=== PATIENT | male | born 1950 | race Caucasian/White ===

== ENCOUNTER 2021-11-03 15:02 | Emergency (ER) | payer OTHER ==
--- NOTE | 2021-11-03 15:44 | ED ---
General Adult HPI - General Chief complaint: Abdominal Pain Stated complaint: Not able to sleep Time Seen by Provider: 11/03/21 15:25 Source: patient, family, RN notes reviewed Mode of arrival: ambulatory Limitations: no limitations - History of Present Illness Initial comments: Patient is a 71-year-old male presents to the emergency room with complaints of increased urinary frequency at nighttime. He states that he is getting up 5-6 times a night to urinate causing him to become very drowsy during the day. He denies any increase in daytime urination. He denies any dysuria, hematuria or flank pain. He denies any abdominal pain, nausea, vomiting., fevers or chills. He notes the low-grade temperature upon triage in the ER today without any chills. He states that he is not following healthcare providers regularly at this time. He is staying at the local [facility] as they are traveling. He denies any follow-up with urology from his local region as well. He denies any significant past medical history and states he is not taking any medications on a regular basis. - Related Data Previous Rx's Medication Instructions Recorded Ciprofloxacin HCl [Cipro] 500 mg PO Q12HR 10 Days #20 tab 11/03/21 Allergies Allergy/AdvReac Type Severity Reaction Status Date / Time No Known Allergies Allergy Verified 11/03/21 15:23 Review of Systems ROS Statement: Those systems with pertinent positive or pertinent negative responses have been documented in the HPI. ROS Other: All systems not noted in ROS Statement are negative. Past Medical History Past Medical History: No Reported History Past Surgical History: Joint Replacement Past Psychological History: No Psychological Hx Reported Smoking Status: Never smoker Past Alcohol Use History: None Reported Past Drug Use History: None Reported General Exam Limitations: language barrier (primary language Omani) General appearance: alert, in no apparent distress Head exam: Present: atraumatic, normocephalic, normal inspection Eye exam: Present: normal appearance, PERRL, EOMI. Absent: scleral icterus, conjunctival injection, periorbital swelling ENT exam: Present: normal exam, mucous membranes moist Neck exam: Present: normal inspection, full ROM Respiratory exam: Present: normal lung sounds bilaterally. Absent: respiratory distress, wheezes, rales, rhonchi, stridor Cardiovascular Exam: Present: regular rate, normal rhythm, normal heart sounds. Absent: systolic murmur, diastolic murmur, rubs, gallop, clicks GI/Abdominal exam: Present: soft, normal bowel sounds. Absent: distended, tenderness, guarding, rebound, rigid Rectal exam: Present: deferred Extremities exam: Present: normal inspection, full ROM, normal capillary refill. Absent: tenderness, pedal edema, joint swelling, calf tenderness Back exam: Present: normal inspection. Absent: CVA tenderness (R), CVA tenderness (L) Neurological exam: Present: alert, oriented X3, CN II-XII intact Psychiatric exam: Present: normal affect, normal mood Skin exam: Present: warm, dry, intact, normal color. Absent: rash Course Vital Signs 11/03/21 11/03/21 11/03/21 15:20 16:41 18:26 Temperature 100.6 F H 102.5 F H 99.0 F Pulse Rate 75 74 74 Respiratory 20 18 16 Rate Blood Pressure 164/84 159/79 107/63 O2 Sat by Pulse 100 99 98 Oximetry Medical Decision Making - Medical Decision Making 71-year-old male presenting to the emergency room with increased urination at bedtime. Will check urinalysis along with CBC, CMP and postvoid residual. No indication for medications at this time. Leukocytosis and elevated PVR noted; will check CT abdomen and pelvis to rule out obstruction and mass. CT scan with no evidence of obstruction. Bladder wall thickening consistent with cystitis noted. Also renal stranding consistent with a kidney stone and nonobstructing kidney stone noted. Temperature elevated at 102.5 Tylenol given. Will give rocephin IM and monitor response. Temperature responded well to Tylenol with now at 99.0. Strict return perimeters discussed with patient and spouse discussed. Will discharge home on oral antibiotics and advised to obtain ibuprofen and Tylenol [id number] to take for any temperature greater than 101. Patient from [place] and planning on returning back to his home country within the next few weeks and is leaving the area in the next few days. Discussed his need for follow-up as soon as he returns back to his home country and strict return to an emergency rooms parameters. Case discussed with Dr. Taveras. - Lab Data Result diagrams: 11/03/21 15:28 11/03/21 15:28 Lab Results 11/03/21 11/03/21 11/03/21 Range/Units 15:28 15:28 15:28 WBC 11.1 H (3.8-10.6) k/uL RBC 4.54 (4.30-5.90) m/uL Hgb 14.2 (13.0-17.5) gm/dL Hct 43.7 (39.0-53.0) % MCV 96.2 (80.0-100.0) fL MCH 31.2 (25.0-35.0) pg MCHC 32.4 (31.0-37.0) g/dL RDW 13.7 (11.5-15.5) % Plt Count 321 (150-450) k/uL MPV 7.4 Neutrophils % 86 % Lymphocytes % 7 % Monocytes % 5 % Eosinophils % 1 % Basophils % 0 % Neutrophils # 9.5 H (1.3-7.7) k/uL Lymphocytes # 0.8 L (1.0-4.8) k/uL Monocytes # 0.5 (0-1.0) k/uL Eosinophils # 0.1 (0-0.7) k/uL Basophils # 0.0 (0-0.2) k/uL Sodium 135 L (137-145) mmol/L Potassium 4.4 (3.5-5.1) mmol/L Chloride 98 (98-107) mmol/L Carbon Dioxide 26 (22-30) mmol/L Anion Gap 11 mmol/L BUN 15 (9-20) mg/dL Creatinine 0.98 (0.66-1.25) mg/dL Est GFR (CKD-EPI)AfAm >90 (>60 ml/min/1.73 sqM) Est GFR (CKD-EPI)NonAf 79 (>60 ml/min/1.73 sqM) Glucose 107 H (74-99) mg/dL Calcium 8.8 (8.4-10.2) mg/dL Total Bilirubin 1.7 H (0.2-1.3) mg/dL AST 40 (17-59) U/L ALT 22 (4-49) U/L Alkaline Phosphatase 93 (38-126) U/L Total Protein 7.2 (6.3-8.2) g/dL Albumin 4.1 (3.5-5.0) g/dL Urine Color Yellow Urine Appearance Cloudy (Clear) Urine pH 5.5 (5.0-8.0) Ur Specific [place] 1.013 (1.001-1.035) Urine Protein 1+ H (Negative) Urine Glucose (UA) Negative (Negative) Urine Ketones Negative (Negative) Urine Blood Moderate H (Negative) Urine Nitrite Positive (Negative) Urine Bilirubin Negative (Negative) Urine Urobilinogen <2.0 (<2.0) mg/dL Ur Leukocyte Esterase Large H (Negative) Urine RBC 35 H (0-5) /hpf Urine WBC 161 H (0-5) /hpf Urine WBC Clumps Few H (None) /hpf Ur Squamous Epith Cells 1 (0-4) /hpf Urine Bacteria Many H (None) /hpf Urine Mucus Rare H (None) /hpf - Radiology Data Radiology results: report reviewed, image reviewed CT abdomen pelvis with contrast impression mild asymmetric (phrenic fat stranding correlating for ascending infection this may represent recently passed stone. No obvious obstructive calculi identified however evaluation is limited due to body habitus and right hip arthroplasty with streak artifact. Nonobstructing right 6 mm renal calculi. Limited evaluation of bladder due to right hip prosthesis. Circumferential bladder wall thickening correlate for cystitis with urinalysis. Disposition Clinical Impression: Calculus of kidney, Cystitis Disposition: HOME SELF-CARE Condition: Fair Instructions (If sedation given, give patient instructions): Kidney Stones (ED), Urinary Tract Infection in Men (ED) Additional Instructions: Please take antibiotic prescription as prescribed. Please utilize ibuprofen [id number] 200 mg 1-2 tabs every 4-6 hours as needed for fevers. Please return to the emergency room if you develop worsening symptoms including persistent fevers, nausea, vomiting, altered mental status will be inability to urinate. Please drink plenty of fluids. Please follow-up with your primary care provider in general neurologist upon returning home or return to the emergency room for further treatment if symptoms worsen prior to departing the region. Please return to the Emergency Department if symptoms worsen or any other concerns. Prescriptions: Ciprofloxacin HCl [Cipro] 500 mg PO Q12HR 10 Days #20 tab Is patient prescribed a controlled substance at d/c from ED?: No Referrals: None,Stated [Primary Care Provider] - As Soon As Possible (Please follow up with urology and your primary care provider as soon as you return to [facility].) Time of Disposition: 18:28
[2021-11-03 15:46] LABS: Basophils % (A) 0 %; Eosinophils # (A) 0.1 k/uL (0-0.7); Eosinophils % (A) 1 %; HCT 43.7 % (39.0-53.0); HGB 14.2 gm/dL (13.0-17.5); Lymphocytes # (A) 0.8 k/uL (1.0-4.8); Lymphocytes % (A) 7 %; MCH 31.2 pg (25.0-35.0); MCHC 32.4 g/dL (31.0-37.0); MCV 96.2 fL (80.0-100.0); Mean Platelet Volume 7.4; Monocytes # (A) 0.5 k/uL (0-1.0); Monocytes % (A) 5 %; Neutrophils # (A) 9.5 k/uL (1.3-7.7); Neutrophils % (A) 86 %; Platelet Count 321 k/uL (150-450); RBC 4.54 m/uL (4.30-5.90); RDW 13.7 % (11.5-15.5); WBC 11.1 k/uL (3.8-10.6)
[2021-11-03 15:55] LABS: Appearance,Urine Cloudy (Clear); Bacteria,Urine Many /hpf; Bilirubin,Urine Negative (Negative); Blood,Urine Moderate (Negative); Color,Urine Yellow; Glucose,Urine (UA) Negative (Negative); Ketones,Urine Negative (Negative); Leukocyte Esterase,Urine Large (Negative); Mucus,Urine Rare /hpf; Nitrite,Urine Positive (Negative); PH, Urine 5.5 (5.0-8.0); Protein,Urine 1+ (Negative); RBC,Urine 35 /hpf (0-5); Specific Gravity,Urine 1.013 (1.001-1.035); Squamous Epithelial Cell,Urine 1 /hpf (0-4); Urobilinogen,Urine <2.0 mg/dL (<2.0); WBC,Urine 161 /hpf (0-5)
[2021-11-03 15:57] LABS: ALT 22 U/L (4-49); AST 40 U/L (17-59); African American GFR (CKD) >90 (>60 ml/min/1.73 sqM); Albumin 4.1 g/dL (3.5-5.0); Alkaline Phosphatase 93 U/L (38-126); Anion Gap 11 mmol/L; Blood Urea Nitrogen 15 mg/dL (9-20); Calcium 8.8 mg/dL (8.4-10.2); Carbon Dioxide 26 mmol/L (22-30); Chloride 98 mmol/L (98-107); Glucose 107 mg/dL (74-99); Non-African American GFR(CKD) 79 (>60 ml/min/1.73 sqM); Potassium 4.4 mmol/L (3.5-5.1); Sodium 135 mmol/L (137-145); Total Bilirubin 1.7 mg/dL (0.2-1.3); Total Protein 7.2 g/dL (6.3-8.2)
[2021-11-03 16:43] VITALS: PULSE 74
[2021-11-03] MEDS ORDERED: ACETAMINOPHEN TAB 500 MG TAB PO STA (17:09)
--- NOTE | 2021-11-03 17:20 | CT ---
EXAMINATION TYPE: CT abdomen pelvis wo con CT DLP: 504.8 mGycm, Automated exposure control for dose reduction was used. DATE OF EXAM: 11/03/2021 4:53 PM COMPARISON: None CLINICAL INDICATION:Male, 71 years old with history of hematuria and urinary retention; TECHNIQUE: Axial CT of the abdomen and pelvis. Sagittal and coronal reformats were created on a [employer] workstation. Contrast used: None Oral contrast used: without Oral Contrast FINDINGS: LOWER CHEST: Unremarkable ABDOMEN Motion limits evaluation of the abdomen. LIVER: Unremarkable GALLBLADDER AND BILE DUCTS: Unremarkable. PANCREAS: Unremarkable. SPLEEN: Unremarkable. ADRENAL GLANDS: Unremarkable. KIDNEYS AND URETERS: Right nonobstructing calculus measuring up to 6 mm. Evaluation of the distal ure ters is limited given streak artifact from right hip hip arthroplasty changes. PELVIS Streak artifact limits evaluation the pelvis. BLADDER: Mild circumferential bladder wall thickening up to 4 mm. REPRODUCTIVE: Unremarkable. ABDOMEN & PELVIS STOMACH AND BOWEL: No evidence of bowel obstruction. PERITONEUM: No evidence of pneumoperitoneum or free fluid. VASCULATURE: No evidence of aortic aneurysm. There is a tortuous aorta. MUSCULOSKELETAL: No acute osseous abnormalities, there is right hip arthroplasty changes. LYMPH NODES: No gross evidence for lymphadenopathy. SOFT TISSUE/ABDOMINAL WALL: Unremarkable IMPRESSION: 1. Mild asymmetric left perinephric fat stranding correlate for ascending infection. This may represe nt recently passed stone. No obvious obstructive calculus identified however evaluation is limited du e to patient's body habitus and right hip arthroplasty with streak artifact. 2. Nonobstructing right 6 mm renal calculus. 3. Limited evaluation of bladder due to right hip prosthesis. Circumferential bladder wall thickening correlate for cystitis with urinalysis.
[2021-11-03] MEDS ORDERED: cefTRIAXone 1,000 MG VIAL (IM USE) IM STA (17:31)
[2021-11-03 18:29] VITALS: RESP 16; TEMP 99
[2021-11-03 18:30] VITALS: BP 107/63
== END 2021-11-03 19:10 | disposition home or self-care (01) ==
LOC: EC 15:02
DX: N30.90 Cystitis, unspecified without hematuria (principal); N20.0 Calculus of kidney
CPT/HCPCS: 51798; 36415; 80053; 85025; 81001; 87086; 74176; 99284; 96372; J0696